=== PATIENT | female | born 1985 | race Two or more races ===

== ENCOUNTER 2024-08-07 05:44 | Inpatient (IN) | payer MEDICAID, OTHER ==
[~2024-08-07] VITALS: Ht 162.6 cm; Wt 61.4 kg
[2024-08-07 06:20] VITALS: PULSE 75; RESP 28; O2SAT 99
--- NOTE | 2024-08-07 06:38 | ED.PDOC ---
History of Present Illness HPI Comments 39F BIBA w/ prior Hx of Fentanyl use 12hrs ago which may be associated to the c.c of withdrawal symptoms. Pt reports that she has withdrawal symptoms of ABD pain, Anxiety and N/D since this morning. Pt states that she smoked fentanyl 12hrs ago w/ Suboxone. Denies chills, fever, /V, SOB, CP or no other associated symptom's, modifiers, recent injuries or sick contacts at this time. Chief Complaint: Withdrawal Time Seen by MD: 06:25 Reviewed Notes: Nurses Notes, Plug Assembler Notes, Medications, Allergies Allergies: Coded Allergies: NO KNOWN ALLERGIES (Unverified , 08/07/24) Information Source: Patient Mode of Arrival: EMS Severity: Moderate Timing: Hours Duration: Since onset, Hours Prehospital treatment: Treatment (Zofran) Past Medical History PAST MEDICAL HISTORY: Denies Surgical History: Denies all surgeries BOTTOM BLEACHER History: No Pertinent BOTTOM BLEACHER History Family History Family History: Reviewed,noncontributory to illness, Unknown Social History Smoker: Non-Smoker Alcohol: Denies ETOH Use Drugs: Other (Fentanyl) Lives In: Home Constitutional: denies: chills, diaphoresis, fatigue, fever, malaise, sweats, weakness, others EENTM: denies: blurred vision, double vision, ear bleeding, ear discharge, ear drainage, ear pain, ear ringing, eye pain, eye redness, hearing loss, mouth pain, mouth swelling, nasal discharge, nose bleeding, nose congestion, nose pain, photophobia, tearing, throat pain, throat swelling, voice changes, others Respiratory: denies: cough, hemoptysis, orthopnea, SOB at rest, shortness of breath, SOB with excertion, stridor, wheezing, others Cardiovascular: denies: chest pain, dizzy spells, diaphoresis, Dyspnea on exertion, edema, irregular heart beat, left arm pain, lightheadedness, palpitations, PND, syncope, others Gastrointestinal: reports: abdominal pain, nausea; denies: abdomen distended, blood streaked bowels, constipated, diarrhea, dysphagia, difficulty swallowing, hematemesis, melena, poor appetite, poor fluid intake, rectal bleeding, rectal pain, vomiting, others Genitourinary: denies: abnormal vagina bleeding, burning, dyspareunia, dysuria, flank pain, frequency, hematuria, incontinence, pain, , vagina discharge, urgency, others Neurological: denies: dizziness, fainting, headache, left sided numbness, left sided weakness, numbness, paresthesia, pre-existing deficit, right sided numbness, right sided weakness, seizure, speech problems, tingling, tremors, weakness, others Musculoskeletal: denies: back pain, gout, joint pain, joint swelling, muscle pain, muscle stiffness, neck pain, others Integumetry: denies: bruises, change in color, change in hair/nails, dryness, laceration, lesions, lumps, rash, wounds, others Allergic/Immunocompromised: denies: Difficulty Healing, Frequent Infections, Hives, Itching, others Hematologic/Lymphatic: denies: anemia, blood clots, easy bleeding, easy bruising, swollen glands, others Endocrine: denies: excessive hunger, excessive sweating, excessive thirst, excessive urination, flushing, intolerance to cold, intolerance to heat, unexplained weight gain, unexplained weight loss, others Psychiatric: reports: anxiety; denies: bipolar disorder, depression, hopeless, panic disorder, schizophrenia, sleepless, suicidal, others All Other Systems: Reviewed and Negative Physical Exam General Appearance: Moderate Distress, Normal HEENT: Normal ENT Inspection, Pharynx Normal, TMs Normal Neck: Full Range of Motion, Non-Tender, Normal, Normal Inspection Respiratory: Chest Non-Tender, Lungs Clear, No Accessory Muscle Use, No Respiratory Distress, Normal Breath Sounds Cardiovascular: No Edema, No JVD, No Murmur, No Gallop, Normal Peripheral Pulses, Regular Rate/Rhythm Breast Exam: Deferred Gastrointestinal: No Organomegaly, Non Tender, No Pulsatile Mass, Normal Bowel Sounds, Soft Genitalia: Deferred Pelvic: Deferred Rectal: Deferred Extremities: No calf tenderness, Normal capillary refill, Normal inspection, Normal range of motion, Non-tender, No pedal edema Musculoskeletal : Apperance: Normal Neurologic: Alert, flyer repairer II-XII nml as Tested, No Motor Deficits, Normal Affect, Normal Mood, No Sensory Deficits Cerebellar Function: NOT DONE Reflexes: NOT DONE Skin: Dry, Normal Color, Warm Peripheral Pulses: 3+ Radial (R), 3+ Radial (L) Lymphatic: No Adenopathy Was a procedure done? Was a procedure done?: No Differential Dx Considerations may include: Drug use Electrolyte imbalance X-Ray, Labs, Meds, VS Vital Signs Date Time Temp Pulse Resp B/P (MAP) Pulse Ox O2 Delivery O2 Flow Rate FiO2 08/07/24 06:20 75 28 99 Room Air* 0 21 08/07/24 06:20 98.3 75 28 122/89 (100) 99 98.3 08/07/24 05:54 98.1 83 24 113/64 (80) 100 98.1 Lab Test 08/07/24 06:46 Range/Units White Blood Count Pending Red Blood Count Pending Hemoglobin Pending Hematocrit Pending Mean Corpuscular Volume Pending Mean Corpuscular Hemoglobin Pending Mean Corpuscular Hemoglobin Concent Pending Red Cell Distribution Width Pending Platelet Count Pending Mean Platelet Volume Pending Neutrophils (%) (Auto) Pending Lymphocytes (%) (Auto) Pending Monocytes (%) (Auto) Pending Basophils (%) (Auto) Pending Neutrophils # (Auto) Pending Lymphocytes # (Auto) Pending Monocytes # (Auto) Pending Sodium Level Pending Potassium Level Pending Chloride Level Pending Carbon Dioxide Level Pending Anion Gap Pending Blood Urea Nitrogen Pending Creatinine Pending Glomerular Filtration Rate Calc Pending BUN/Creatinine Ratio Pending Serum Glucose Pending Calcium Level Pending Current Medications Medications (Trade) Dose Ordered Sig/Stefania Route Start Time Stop Time Status Last Admin Sodium Chloride 1,000 ml @ 1,000 mls/hr Q1H ONCE IV 08/07/24 06:45 08/07/24 07:44 08/07/24 06:41 Lorazepam (Ativan Inj) 1 mg ONCE ONCE IV 08/07/24 06:45 08/07/24 06:46 DC 08/07/24 06:46 Patient alert. Moving all extremities. Possible withdrawal from fentanyl. Vitals stable. Abdomen is soft nontender. Establish intravenous access. Was given fluids. Was given Ativan. Explained to the patient. Continue cardiac monitoring. Time of 1ST Reevaluation: 06:55 Reevaluation 1ST: Unchanged Patient Education/Counseling: Diagnosis, Treatment, Prognosis Family Education/Counseling: No Family Present Departure 1 Departure Time of Disposition: 07:12 Impression: Primary Impression: Drug withdrawal Qualified Codes: F11.93 - Opioid use, unspecified with withdrawal Disposition: ADMITTED INPATIENT Admit to: Med Surg Condition: Guarded Critical Care Note Critical Care Time?: Yes (45 min-critical care time only) Critical care comment: Drug withdrawal Stability Stability form required: No Heart Score Heart Score: Heart Score Response (Comments) Value History N/A 0 EKG N/A 0 Age N/A 0 Risk Factors N/A 0 Troponin N/A 0 Total 0 I personally scribed for SCOTTIE ESCOEBDO MD ([email or web address]) on 08/07/24 at 06:38. Electronically submitted by Pratik Eller ([email or web address]). SCOTTIE ESCOBEDO MD Aug 07, 2024 06:38
[2024-08-07] MEDS: SODIUM CHLORIDE 0.9% 1,000 ML IV ONE ×2 (06:41→08:50)
[2024-08-07] MEDS: LORazepam 2MG/ML-1ML VIAL IV ONE ×2 (06:46→11:29)
[2024-08-07 07:02] LABS: Basophils # (auto) 0.1 10 ^3/uL (0-0.2); Basophils % (auto) 0.6 % (0.0-2.0); Eosinophils # (auto) 0 10 ^3/uL (0-0.8); Eosinophils % (auto) 0.1 % (0.0-7.0); Hematocrit 44.3 % (36.0-46.0); Lymphocytes # (auto) 1.6 10 ^3/uL (0.4-5.4); Lymphocytes % (auto) 16.4 % (10.0-50.0); Mean Corpuscular Hemoglobin 31.9 pg (28.0-32.0); Mean Corpuscular Hgb Conc. 36.1 g/dL (32.0-36.0); Mean Corpuscular Volume 88.2 fL (80.0-100.0); Monocytes # (auto) 0.3 10 ^3/uL (0-1.3); Monocytes % (auto) 2.7 % (0.0-12.0); Neutrophils # (auto) 7.9 10 ^3/uL (1.6-8.6); Neutrophils % (auto) 80.2 % (37.0-80.0); Nucleated Red Blood Cells % 0.1 %; Red Blood Cells 5.02 10^6/uL (4.0-5.20); Red Cell Distribution Width 12.6 % (11.8-14.3); White Blood Cell 9.9 10^3/uL (4.4-10.8)
[2024-08-07 07:10] LABS: Sodium 140 mmol/L (136-145)
[2024-08-07 07:11] LABS: Anion Gap 13 (5-15); Calcium 10.4 mg/dL (8.7-10.4)
[2024-08-07 07:16] LABS: BUN/Creatinine Ratio 9.2 (10.0-20.0)
[2024-08-07 07:19] LABS: Blood Urea Nitrogen 7 mg/dL (9-23); Carbon Dioxide 20 mmol/L (20-31); Chloride 107 mmol/L (98-107); Glucose 132 mg/dL (74-106); Potassium 3.1 mmol/L (3.5-5.1)
[2024-08-07 08:00] VITALS: TEMP 98.5
[2024-08-07] MEDS ORDERED: SODIUM CHLORIDE 0.9% 1,000 ML IV SCH (09:45)
[2024-08-07] MEDS ORDERED: ACETAMINOPHEN 325 MG TAB PO PRN ×2 (09:45→10:00)
[2024-08-07] MEDS ORDERED: DOCUSATE SOD 100 MG CAP PO PRN ×2 (09:45→10:00)
[2024-08-07] MEDS ORDERED: LORazepam 2MG/ML-1ML VIAL IV PRN (09:45)
[2024-08-07] MEDS ORDERED: ONDANSETRON HCL 4 MG/2 ML VIAL IV PRN ×2 (09:45→10:00)
[2024-08-07] MEDS ORDERED: HYDROcodone-ACET 5/325MG TAB PO PRN ×2 (09:45→10:00)
[2024-08-07] MEDS ORDERED: LORazepam 2MG/ML-1ML VIAL IV ONE (09:45)
[2024-08-07] MEDS ORDERED: MORPHINE SULFATE INJ 2 MG/ml SYRG IV PRN ×2 (09:45→10:00)
[2024-08-07] MEDS ORDERED: NITROGLYCERIN 0.4 MG SL TAB SL PRN ×2 (09:45→10:00)
[2024-08-07] MEDS: ONDANSETRON HCL 4 MG/2 ML VIAL IV ONE (09:46)
[2024-08-07] MEDS: MORPHINE SULFATE INJ 2 MG/ml SYRG IV ONE (09:48)
[2024-08-07] MEDS: POTASSIUM EFFERVESENT TAB 25 MEQ GT ONE (10:00)
[2024-08-07 10:05] LABS: Platelet Estimate Adequate
[2024-08-07 10:06] LABS: Platelet Count (auto) 290 10^3/uL (140-450)
--- NOTE | 2024-08-07 10:09 | DVHHP2 ---
History of Present Illness Reason for Visit: Drug withdrawal History of Present Illness Marry Matson is a 39-year-old female with past medial history of fentanyl abuse, who came in for fentanyl withdrawal. Patient states that she has been using fentanyl for about 2 years and she wants to stop using. She states that she read if you take Suboxone with fentanyl that can help prevent withdrawals. This morning she states she smoked fentanyl and took about 30 mg of Suboxone. She came in shortly after due to severe withdrawal symptoms. Past Surgical History: Other (Left foot surgery) Smoke: No ALCOHOL: none Drugs: Other (Fentanyl) Lives: Friends (boyfriend) Domestic Violence: Neg Review of Systems Constitutional: Yes: Sweats, Other (anxiety); No: Fever, Chills, Weakness, Malaise Eyes: No: Pain, Vision change, Conjunctivae inflammation, Eyelid inflammation, Other, Redness ENT: No: Ear pain, Ear discharge, Nose pain, Nose discharge, Nose congestion, Mouth pain, Mouth swelling, Throat pain, Throat swelling, Other Respiratory: No: Cough, Dry, Shortness of breath, SOB with excertion, Wheezing, Hemoptysis, Pleuritic Pain, Sputum, Wheezing, Other Cardiovascular: No: Chest Pain, Palpitations, Orthopnea, Paroxysmal Noc. Dyspnea, Edema, Lt Headedness, Other Gastrointestinal: Nausea; No: Vomiting, Abdominal Pain, Diarrhea, Constipation, Melena, Hematochezia, Other Genitourinary: No Dysuria, No Frequency, No Incontinence, No Hematuria, No Retention, No Other Musculoskeletal: back pain; No: other, neck pain, shoulder pain, arm pain, hand pain, leg pain, foot pain Skin: No: Rash, Lesions, Jaundice, Bruising, Other Neurological: No: Weakness, Numbness, Incoordination, Change in speech, Confusion, Seizures, Other Allergies: Coded Allergies: NO KNOWN ALLERGIES (Unverified , 08/07/24) Medications Current Medications Medications Dose Ordered Sig/Stefania Route Start Time Stop Time Status Last Admin Dose Admin Sodium Chloride 1,000 ml @ 100 mls/hr Q10H IV 08/07/24 09:45 UNV Acetaminophen/ Hydrocodone Bitart 1 tab Q4HP PRN PO 08/07/24 09:45 UNV Ondansetron HCl 4 mg Q4HP PRN IV 08/07/24 09:45 UNV Docusate Sodium 100 mg BIDPRN PRN PO 08/07/24 09:45 UNV Acetaminophen 650 mg Q6HP PRN PO 08/07/24 09:45 UNV Nitroglycerin 0.4 mg Q5MINP PRN SL 08/07/24 09:45 UNV Morphine Sulfate 2 mg Q30M PRN IV 08/07/24 09:45 UNV Lorazepam 1 mg Q2HP PRN IV 08/07/24 09:45 UNV Exam Vital Signs Vital Signs Date Time Temp Pulse Resp B/P (MAP) Pulse Ox O2 Delivery O2 Flow Rate FiO2 08/07/24 08:00 98.5 88 21 96/61 (73) 97 98.5 08/07/24 08:00 Room Air* 0 21 General Appearance: Alert, Oriented X3, Cooperative, moderate distress HEENT: Atraumatic, PERRLA, Mucous membr. moist/pink Respiratory: Clear to auscultation, Normal air movement Cardiovascular: Regular rate, Normal S1, Normal S2 Abdominal: Normal bowel sounds, Soft, No tenderness, No hepatospenomegaly Extremities: No clubbing, No cyanosis, No edema, Normal pulses Skin: No rashes, No breakdown, No significant lesion Neuro: Normal gait, Normal speech, Strength at 5/5 X4 ext Psych/Mental Status: Mental status NL, Mood NL Labs/Xrays Labs Test 08/07/24 06:46 Range/Units White Blood Count 9.9 4.4-10.8 10^3/uL Red Blood Count 5.02 4.0-5.20 10^6/uL Hemoglobin 16.0 12.2-16.2 g/dL Hematocrit 44.3 36.0-46.0 % Mean Corpuscular Volume 88.2 80.0-100.0 fL Mean Corpuscular Hemoglobin 31.9 28.0-32.0 pg Mean Corpuscular Hemoglobin Concent 36.1 H 32.0-36.0 g/dL Red Cell Distribution Width 12.6 11.8-14.3 % Platelet Count 279 140-450 10^3/uL Mean Platelet Volume 7.6 6.9-10.8 fL Neutrophils (%) (Auto) 80.2 H 37.0-80.0 % Lymphocytes (%) (Auto) 16.4 10.0-50.0 % Monocytes (%) (Auto) 2.7 0.0-12.0 % Eosinophils (%) (Auto) 0.1 0.0-7.0 % Basophils (%) (Auto) 0.6 0.0-2.0 % Neutrophils # (Auto) 7.9 1.6-8.6 10 ^3/uL Lymphocytes # (Auto) 1.6 0.4-5.4 10 ^3/uL Monocytes # (Auto) 0.3 0-1.3 10 ^3/uL Eosinophils # (Auto) 0 0-0.8 10 ^3/uL Basophils # (Auto) 0.1 0-0.2 10 ^3/uL Nucleated Red Blood Cells 0.1 % Sodium Level 140 136-145 mmol/L Potassium Level 3.1 L 3.5-5.1 mmol/L Chloride Level 107 98-107 mmol/L Carbon Dioxide Level 20 20-31 mmol/L Anion Gap 13 5-15 Blood Urea Nitrogen 7 L 9-23 mg/dL Creatinine 0.76 0.550-1.02 mg/dL Glomerular Filtration Rate Calc 102 >90 mL/min BUN/Creatinine Ratio 9.2 L 10.0-20.0 Serum Glucose 132 H 74-106 mg/dL Calcium Level 10.4 8.7-10.4 mg/dL EXAM: XY CHEST XRAY 1 VIEW FINDINGS: Lines and Tubes: None Lungs: No focal consolidation. Pleura: No effusion. No pneumothorax. Cardiomediastinal contours: Unremarkable Bones: No acute osseous abnormality. IMPRESSION: No acute cardiopulmonary disease. Assessment/Plan Assessment/Plan Assessment: Drug withdrawal, Hypokalemia, Hypomagnesium, Hyperglycemia, Polysubstance abuse, Plan: Admit to Tele, Social service consult, IV Ativan as needed for withdrawal, IV hydration, Manage/Monitor electrolytes closely, Plan discussed with: Patient My Orders Orders - NINI TURCIOS Procedure Category Date Status Time Admit ADMIT 08/07/24 Transmitted 09:36 Code Status CODE 08/07/24 Transmitted 09:36 Sodium Chloride 0.9% PHA 08/07/24 Logged 09:45 Hydrocodone-Acet PHA 08/07/24 Logged 5/325mg Tab ([place] 09:45 Ondansetron Hcl PHA 08/07/24 Logged (Zofran) 09:45 Docusate Sodium PHA 08/07/24 Logged Capsule ([facility] 09:45 Complete Blood Count LAB 08/08/24 Verified 04:00 Comprehensive LAB 08/08/24 Verified Metabolic Panel 04:00 Npo (Nothing By DIET 08/07/24 Transmitted Mouth) Diet Lunch Condition: Serious [facility] 08/07/24 In Process 09:36 Acetaminophen Tablet [facility] 08/07/24 Logged (Tylenol Tablet) 09:45 Nitroglycerin [facility] 08/07/24 Logged Sublingual (Ntrostat 09:45 Morphine Sulfate [facility] 08/07/24 Logged Injection 09:45 Stat Ekg For Chest [facility] 08/07/24 In Process Pain 09:36 Notify Md Of Changes [facility] 08/07/24 In Process From Base 09:36 Warble Saw Operator For [facility] 08/07/24 In Process 24 Hours 09:36 Emergency Dysrhythmia [facility] 08/07/24 In Process Protocol 09:36 Rhythm Strips Once [facility] 08/07/24 In Process Every Shift 09:36 Oxygen By Nasal RT 08/07/24 Transmitted Cannula 09:36 Lorazepam 2mg/Ml Inj PHA 08/07/24 Logged (Ativan Inj) 09:45 Lorazepam 2mg/Ml Inj PHA 08/07/24 Logged (Ativan Inj) 09:45 Date of Service: Aug 07, 2024 Billing Provider: NINI TURCIOS Common Visit Codes: [id number] INP/OBS CARE (MOD) NINI TURCIOS Aug 07, 2024 10:09
--- NOTE | 2024-08-07 10:28 | DVH ---
EXAM: XY CHEST XRAY 1 VIEW Indication: Shortness of breath Technique: Single frontal view of the chest was obtained Comparison: None FINDINGS: Lines and Tubes: None Lungs: No focal consolidation. Pleura: No effusion. No pneumothorax. Cardiomediastinal contours: Unremarkable Bones: No acute osseous abnormality. IMPRESSION: No acute cardiopulmonary disease.
[2024-08-07 10:53] LABS: Magnesium 1.6 mg/dL (1.6-2.6)
[2024-08-07] MEDS: SODIUM CHLORIDE 0.9% 1,000 ML IV SCH (11:29)
[2024-08-07] MEDS: POTASSIUM EFFERVESENT TAB 25 MEQ PO ONE (14:32)
[2024-08-07] MEDS: MAGNESIUM SULFATE 1GM/100ML 100 ML IV SCH (14:40)
[2024-08-07] MEDS: LORazepam 2MG/ML-1ML VIAL IV PRN (15:36)
[2024-08-07 16:00] VITALS: BP 126/89; PULSE 84; RESP 12; O2SAT 94
== END 2024-08-07 16:29 | disposition left against medical advice (07) | DRG 425 ==
LOC: ER 05:44 → EDBD 05:44 → OVERFLOW 09:36 → ER 09:39
PROVIDERS: ADMIT Nurse Practitioner Family; ATTEND Nurse Practitioner Family
DX: E87.6 Hypokalemia (principal); E83.42 Hypomagnesemia; R73.9 Hyperglycemia, unspecified; F41.9 Anxiety disorder, unspecified; F11.13 Opioid abuse with withdrawal; Z53.29 Procedure and treatment not carried out because of patient's decision for other reasons
CPT/HCPCS: 36415; 71045; 80048; 83735; 84132; 85025; 96365; 96375; 99291; G0378; J2405